=== PATIENT | female | born 1990 | race Caucasian/White ===

== ENCOUNTER 2018-02-26 14:10 | Emergency (ER) | payer OTHER ==
[~2018-02-26 14:10] MED LIST: BACT800T5 PO; CEPH250 PO; NAPR550 PO; PRED50 PO; ZOFR4TAB3 SL
[2018-02-26 14:17] VITALS: BP 109/64; PULSE 90; RESP 16; TEMP 99.1; O2SAT 99
[2018-02-26 15:10] VITALS: BP 109/64; PULSE 90; RESP 16; TEMP 99.1; O2SAT 99
[2018-02-26 15:26] LABS: BILIRUBIN, URINE NEG (NEG); BLOOD, URINE MOD (NEG); GLUCOSE,URINE NEG (NEG); KETONE, URINE NEG (NEG); NITRITE,URINE NEG (NEG); PH, URINE 5.5 (5.0-8.5); URINE COLOR YELLOW (YELLW/STRAW); URINE LEUKOCYTE ESTERASE NEG (NEG)
[2018-02-26 15:48] LABS: SQUAMOUS EPITHELIAL CELL URINE > 8 /hpf (0-5); WBC, URINE 0-2 /hpf (0-5)
--- NOTE | 2018-02-26 16:11 | PD ---
HPI Chief Complaint: Related Problem Time Seen by Provider: 16:01 Travel History International Travel<30 days: No Contact w/Intl Traveler<30days: No Traveled to known affect area: No History of Present Illness HPI This 27-year-old female is complaining of lower abdominal discomfort and small amount of vaginal bleeding. Her last period was December 23. She has a 5-year- old child. She had a positive home test. She has a history of appendectomy. She is 2 para 1. She does say her periods are somewhat erratic PENDING SALE TO [facility] Past Medical History Diminished Hearing: No Genitourinary: Yes (r fallopian tube removed) Integumentary: Yes (MRSA RIGHT LOWER FACE) Immunizations Current: Yes Pancreatitis: Yes Tetanus Vaccination: Unknown Influenza Vaccination: No ?: : 1 Para: 1 Past Surgical History Appendectomy: Yes Section: Yes Cholecystectomy: Yes Social History Alcohol Use: Yes (RARE) Tobacco Use: Yes (5-6 CIG/DAY) Substance Use: No Allergies-Medications (Allergen,Severity, Reaction): Coded Allergies: No Known Allergies (Unverified , 12/12/15) Reported Meds & Prescriptions Reported Meds & Active Scripts Active No Active Prescriptions or Reported Medications Review of Systems General / Constitutional: No: Fever Eyes: No: Diploplia, Blurred Vision HENT: No: Headaches, Vertigo Cardiovascular: No: Chest Pain or Discomfort, Palpitations Respiratory: No: Cough, Shortness of Breath Gastrointestinal: No: Nausea, Vomiting Genitourinary: Positive: Pelvic Pain, Vaginal Bleeding, No: Urgency, Frequency Musculoskeletal: No: Myalgias Skin: No Rash Physical Exam Narrative GENERAL: Well-developed female SKIN: Focused skin assessment warm/dry. HEAD: Atraumatic. Normocephalic. EYES: Pupils equal and round. No scleral icterus. No injection or drainage. ENT: No nasal bleeding or discharge. Mucous membranes pink and moist. NECK: Trachea midline. No JVD. CARDIOVASCULAR: Regular rate and rhythm. No murmur appreciated. RESPIRATORY: No accessory muscle use. Clear to auscultation. Breath sounds equal bilaterally. GASTROINTESTINAL: Abdomen soft, non-tender, nondistended. Hepatic and splenic margins not palpable. Pelvic there is some whitish discharge. There is no active bleeding at this time. The office is closed. Uterus is not palpably enlarged. There are no masses felt MUSCULOSKELETAL: No obvious deformities. No clubbing. No cyanosis. No edema. NEUROLOGICAL: Awake and alert. No obvious cranial nerve deficits. Motor grossly within normal limits. Normal speech. PSYCHIATRIC: Appropriate mood and affect; insight and judgment normal. Data Data Last Documented VS Vital Signs Date Time Temp Pulse Resp B/P (MAP) Pulse Ox O2 Delivery O2 Flow Rate FiO2 02/26/18 18:15 75 17 98/60 (73) 98 Room Air 02/26/18 15:10 99.1 Orders Orders Ed Urine Pregnancytest Poc (02/26/18 15:13) Urinalysis - C+S If Indicated (02/26/18 15:13) Complete Blood Count With Diff (02/26/18 16:04) Beta Hcg (Quant/Titer) (02/26/18 16:04) Complete Rh (02/26/18 16:04) Gc And Chlamydia Pcr (02/26/18 16:31) Us Pelvis (Ques Pr/Ect)W Trans (02/26/18 ) Wet Prep Profile (02/26/18 16:31) Labs Laboratory Tests Test 02/26/18 15:18 02/26/18 16:10 02/26/18 16:20 Urine Collection Type CLEAN CATCH Urine Color YELLOW Urine Turbidity CLEAR Urine pH 5.5 Urine Specific [place] 1.015 Urine Protein NEG mg/dL Urine Glucose (UA) NEG mg/dL Urine Ketones NEG mg/dL Urine Occult Blood MOD Urine Nitrite NEG Urine Bilirubin NEG Urine Urobilinogen 0.2 MG/DL Urine Leukocyte Esterase NEG Urine RBC 10-14 /hpf Urine WBC 0-2 /hpf Urine Squamous Epithelial Cells > 8 /hpf Microscopic Urinalysis Comment CULT NOT INDICATED Urine Collection Time 15:18. Clue Cells (Wet Prep) NONE SEEN Vaginal Trichomonas (Wet Prep) NONE SEEN Vaginal Yeast (Wet Prep) NONE SEEN White Blood Count 10.0 TH/MM3 Red Blood Count 4.72 MIL/MM3 Hemoglobin 14.3 GM/DL Hematocrit 41.2 % Mean Corpuscular Volume 87.4 FL Mean Corpuscular Hemoglobin 30.2 PG Mean Corpuscular Hemoglobin Concent 34.6 % Red Cell Distribution Width 12.2 % Platelet Count 278 TH/MM3 Mean Platelet Volume 8.1 FL Neutrophils (%) (Auto) 69.1 % Lymphocytes (%) (Auto) 23.4 % Monocytes (%) (Auto) 5.9 % Eosinophils (%) (Auto) 1.2 % Basophils (%) (Auto) 0.4 % Neutrophils # (Auto) 7.0 TH/MM3 Lymphocytes # (Auto) 2.3 TH/MM3 Monocytes # (Auto) 0.6 TH/MM3 Eosinophils # (Auto) 0.1 TH/MM3 Basophils # (Auto) 0.0 TH/MM3 CBC Comment DIFF FINAL Differential Comment Human Chorionic Gonadotropin, Quant 810 MIU/ML [facility] Medical Decision Making Medical Screen Exam Complete: Yes Emergency Medical Condition: Yes Medical Record Reviewed: Yes Differential Diagnosis Beta titer is 810 which is unexpectedly low with her last period in December. Ultrasound was done and there is a question of a small IUP. Evaluation is not definitive. Differential includes incomplete AB, ectopic , viable IUP. Patient has been advised of this I have told her she needs to be reevaluated in 2-3 days for repeat beta. She should return sooner if pain or bleeding Narrative Course Evaluation is inconclusive at this time. This may be IUP though ectopic has not been definitively ruled out Diagnosis Primary Impression: Additional Instructions: Need to be reevaluated in 2-3 days. Return if increased bleeding or pain Scripts No Active Prescriptions or Reported Meds Disposition: 01 DISCHARGE HOME Condition: Stable Benjamin Catalan MD February 26, 2018 16:11
[2018-02-26 16:37] LABS: BASOPHIL % 0.4 % (0.0-2.0); EOSINOPHIL # 0.1 TH/MM3 (0-0.4); EOSINOPHIL % 1.2 % (0.0-4.0); HEMATOCRIT 41.2 % (35.0-46.0); HEMOGLOBIN 14.3 GM/DL (11.6-15.3); LYMPH % 23.4 % (9.0-44.0); LYMPHOCYTE # 2.3 TH/MM3 (1.0-4.8); MEAN CELL VOLUME 87.4 FL (80.0-100.0); MEAN CORPUSCULAR HEMOGLOBIN 30.2 PG (27.0-34.0); MEAN CORPUSCULAR HGB CONC 34.6 % (32.0-36.0); MEAN PLATELET VOLUME 8.1 FL (7.0-11.0); MONO % 5.9 % (0.0-8.0); MONOCYTE # 0.6 TH/MM3 (0-0.9); NEUT % 69.1 % (16.0-70.0); PLATELET COUNT 278 TH/MM3 (150-450); RED BLOOD COUNT 4.72 MIL/MM3 (4.00-5.30); RED CELL DISTRIBUTION WIDTH 12.2 % (11.6-17.2)
[2018-02-26 17:00] VITALS: BP 97/49; PULSE 82; RESP 16; O2SAT 98
[2018-02-26 18:15] VITALS: BP 98/60; PULSE 75; RESP 17; O2SAT 98
--- NOTE | 2018-02-26 18:31 | RADRPT ---
EXAM DATE/TIME: 02/26/2018 17:15 [place] COMPARISON: No previous studies available for comparison. INDICATIONS : Bleeding. LAB(S): Beta-hC MEDICAL HISTORY : Glasses. MRSA. SURGICAL HISTORY : Appendectomy. Cholecystectomy. section. Right fallopian tube removed. ENCOUNTER: Initial ACUITY: 1 day PAIN SCORE: 3/10 LOCATION: Bilateral pelvis MEASUREMENTS: UTERUS: 7.4 x 4.4 x 3.9 cm ENDOMETRIAL STRIPE: 11 mm RIGHT OVARY: 3.0 x 2.9 x 1.3 cm LEFT OVARY: 6.7 x 5.7 x 4.8 cm FREE FLUID: Yes cul de sac. CROWN RUMP LENGTH: too early = WKS DAYS FHR: too early BPM FINDINGS: UTERUS: Tiny anechoic structure in the fundal endometrium which could be a very early gestational sac, averag e estimated diameter of 5 mm. RIGHT OVARY: Ovary contains no mass or significant cystic lesion. LEFT OVARY: 5.7 cm simple appearing cyst MISCELLANEOUS: Minimal free fluid CONCLUSION: Possible very early intrauterine gestation. Followup recommended. Left ovarian cyst Roddy Jimenez MD on February 26, 2018 at 18:24 Board Certified Radiologist. This report was verified electronically.
[2018-02-26 18:58] VITALS: BP 103/69; TEMP 98.7
== END 2018-02-26 19:12 | disposition home or self-care (01) ==
LOC: PHED 14:10
DX: O20.9 Hemorrhage in early pregnancy, unspecified (principal); O99.330 Smoking (tobacco) complicating pregnancy, unspecified trimester; F17.210 Nicotine dependence, cigarettes, uncomplicated
CPT/HCPCS: 76700; 76817; 81001; 84702; 84703; 85025; 86901; 87210; 87491; 87591